=== PATIENT | female | born 1990 | race Caucasian/White ===

== ENCOUNTER 2020-07-26 06:21 | Emergency (ER) | payer OTHER ==
--- NOTE | 2020-07-26 06:37 | ED Physician Documentation ---
PD HPI NECK PAIN - Stated complaint Stated Complaint: NECK/SHOULDER PX - Chief complaint Chief Complaint: General PD PAST MEDICAL HISTORY - Past Medical History Cardiovascular: Other Respiratory: None Neuro: None Endocrine/Autoimmune: Other GI: None UNIVERSITY INTERN: None : None HEENT: None Psych: Anxiety Musculoskeletal: None Derm: None - Past Surgical History Past Surgical History: Yes /UNIVERSITY INTERN: section - Allergies Allergies/Adverse Reactions: Allergies Allergy/AdvReac Type Severity Reaction Status Date / Time Penicillins Allergy Unknown Verified 07/26/20 06:35 - Social History Does the pt smoke?: No Smoking Status: Never smoker Does the pt drink ETOH?: No Does the pt have substance abuse?: No - Immunizations Immunizations are current?: Yes Results - Vitals Vitals: Vital Signs - 24 hr 07/26/20 07/26/20 06:24 06:28 Temperature 36.5 C Heart Rate 80 Respiratory 18 Rate Blood Pressure 103/71 O2 Saturation 99 Oxygen O2 Source Room air
[2020-07-26] MEDS ORDERED: KETOROLAC 60 MG/2 ML VIAL IM STA (07:09)
[2020-07-26] MEDS ORDERED: ACETAMINOPHEN 325 MG TABLET PO STA (07:35)
--- NOTE | 2020-07-26 08:12 | ED Physician Documentation ---
PD HPI NECK PAIN - Stated complaint Stated Complaint: NECK/SHOULDER PX - Chief complaint Chief Complaint: General - History obtained from History obtained from: Patient - History of Present Illness Timing - onset: Yesterday Timing - details: Abrupt onset, Still present (she was lifting heavy bag of feed into truck yesterday and used her knee to help push it up. Onset of lower neck pain at the time, presume strained. Was hurting some into bedtime but slept the night. Abrupt pain this morning when got up. Hurts with ROM and feeling of swelling at lower cervical area.) Location: Lower, Other (midline) Quality: Pain, Spasm Associated symptoms: Numbness (mild tingling right radial forearm at times. But has had that feeling with some neck pain intermittently in the past. Has not had neck hurt this much in the past though.). No: Fever, Weakness Improves with: Rest Worsened by: Movement Contributing factors: Lifting, Twisting. No: Trauma Similar symptoms before: No diagnosis (some neck pains at times since 15 years old. Not needed more than Tylenol at times.) Recently seen: Not recently seen Review of Systems Constitutional: denies: Fever Nose: denies: Rhinorrhea / runny nose, Congestion Throat: denies: Sore throat Respiratory: denies: Cough Skin: denies: Rash Musculoskeletal: reports: Neck pain. 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 - Present Medications Home Medications: Ambulatory Orders Medication Instructions Recorded Confirmed Hydrocodone/Acetaminophen 1 each PO Q6H PRN #12 tablet 07/26/20 [Hydrocodone-Acetamin 5-325 mg] Naproxen 375 mg PO TID #20 tablet 07/26/20 Tizanidine HCl 4 mg PO TID PRN #20 capsule 07/26/20 - Allergies Allergies/Adverse Reactions: Allergies Allergy/AdvReac Type Severity Reaction Status Date / Time Penicillins Allergy Unknown Verified 07/26/20 06:35 - Social History Does the pt smoke?: No Smoking Status: Never smoker Does the pt drink ETOH?: No Does the pt have substance abuse?: No - Immunizations Immunizations are current?: Yes PD ED PE NORMAL - Vitals Vital signs reviewed: Yes - General General: Alert and oriented X 3, Well developed/nourished, Other (guarded ROM of the neck) - Neck Neck: Supple, no meningeal sign, No adenopathy, Other (tender at lower neck spinous processes, with mild swelling at prominens area. No redness nor skin lesions. ) - Cardiac Cardiac: RRR, No murmur - Respiratory Respiratory: Clear bilaterally - Derm Derm: Normal color, Warm and dry, No rash - Neuro Neuro: Alert and oriented X 3, No motor deficit, No sensory deficit, Normal speech Results - Vitals Vitals: Vital Signs - 24 hr 07/26/20 07/26/20 07/26/20 06:24 06:28 08:34 Temperature 36.5 C 36.2 C L Heart Rate 80 64 Respiratory 18 18 Rate Blood Pressure 103/71 107/67 O2 Saturation 99 100 Oxygen O2 Source Room air - Rads (name of study) cervical CT Radiology: Prelim report reviewed (no fractures nor acute osseous process), See rad report PD MEDICAL DECISION MAKING - ED course Complexity details: reviewed results (no bony process), re-evaluated patient (improved reasonably with Toradol. Can add muscle relaxant, heat/ice, pain meds PRN. ), considered differential (given the mechanism and pain location, can get imaging to eval for avulsion/fracture (such as isamar shovelers) or underlying bony process, given longer term neck pains. ), d/w patient Departure - Departure Disposition: 01 Home, Self Care Clinical Impression: Acute cervical myofascial strain Qualifiers: Encounter type: initial encounter Qualified Code(s): S16.1XXA - Strain of muscle, fascia and tendon at neck level, initial encounter Condition: Stable Record reviewed to determine appropriate education?: Yes Instructions: ED Sprain Strain Neck Follow-Up: ROMAN POLANCO ARNP [Primary Care Provider] - Prescriptions: Hydrocodone/Acetaminophen [Hydrocodone-Acetamin 5-325 mg] 1 each PO Q6H PRN #12 tablet PRN Reason: Pain Naproxen 375 mg PO TID #20 tablet Tizanidine HCl 4 mg PO TID PRN #20 capsule PRN Reason: Spasms Comments: No obvious bony abnormality seen on the scan. General alignment appears normal. You can use heat or ice and see which feels better for either stiffness or spasms for the heat or swelling for the cold. Use some anti-inflammatories regularly for the next several days to week. Naproxen twice daily. Take it with food so it does not bother your stomach. Add tizanidine muscle relaxant for stiffness and spasms as needed. To that you can also add Tylenol every 4-6 hours. Hydrocodone can be used for worse pain in the short-term. Follow-up with your primary care if not improved well over the next several days and for general ongoing care and evaluation of the neck. Discharge Date/Time: 07/26/20 08:37
--- NOTE | 2020-07-26 08:18 | CT Report ---
PROCEDURE: CERVICAL SPINE WO INDICATIONS: abrupt neck pain with lifting type mechanism TECHNIQUE: Noncontrast 3 mm thick sections acquired from the skull base to the T4 level. Sagittal and coronal r eformats were then constructed. For radiation dose reduction, the following was used: automated exp osure control, adjustment of mA and/or kV according to patient size. COMPARISON: None. FINDINGS: Image quality: Excellent. Bones: No fractures or dislocations. Visualized superior ribs are intact. There is straightening of the normal cervical lordosis. No significant AP alignment abnormality can be seen. Moderate mucosal thickening is seen within the maxillary sinuses, left worse than right. Soft tissues: Prevertebral soft tissues are normal in thickness. No paravertebral hematomas. No ap ical pneumothoraces. IMPRESSION: No imaging explanation found for the patient's presenting symptoms. Straightening of the normal cervical lordosis is seen, which is commonly observed in patients with mu scular spasm. Reviewed by: Kingsley Jones MD on 07/26/2020 7:17 AM DAYANARA Approved by: Kingsley Jones MD on 07/26/2020 7:17 AM DAYANARA Station ID: [id number]
[2020-07-26 08:34] VITALS: BP 107/67
== END 2020-07-26 08:37 | disposition home or self-care (01) ==
LOC: ED 06:21
DX: S16.1XXA Strain of muscle, fascia and tendon at neck level, initial encounter (principal); X50.0XXA Overexertion from strenuous movement or load, initial encounter
CPT/HCPCS: 72125; 99281; 99284; A9270

== ENCOUNTER 2020-12-06 13:38 | Emergency (ER) | payer OTHER ==
[2020-12-06 14:05] VITALS: BP 112/64
[2020-12-06] MEDS ORDERED: BACITRACIN ZINC OINT 1 PACKET TOP STA (14:10)
--- NOTE | 2020-12-06 14:17 | ED Physician Documentation ---
History of Present Illness - Stated complaint Stated Complaint: LFT FOOT INJURY - Chief complaint Chief Complaint: Wound - History obtained from History obtained from: Patient - History of Present Illness Timing: Today Pain level max: 0 Pain level now: 0 - Additonal information Additional information: Patient is a 30-year-old female who presents to the emergency department after stepping on a nail while working in her barn with her left foot. She states that she washed the area well, but is unsure of her last tetanus shot, so came in for evaluation. No bleeding. 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 - Present Medications Home Medications: Ambulatory Orders Medication Instructions Recorded Confirmed No Known Home Medications 12/06/20 12/06/20 - Allergies Allergies/Adverse Reactions: Allergies Allergy/AdvReac Type Severity Reaction Status Date / Time Penicillins Allergy Unknown Verified 12/06/20 14:05 - Social History Does the pt smoke?: No Smoking Status: Never smoker Does the pt drink ETOH?: No Does the pt have substance abuse?: No - Immunizations Immunizations are current?: Yes PD ED PE NORMAL - Vitals Vital signs reviewed: Yes - General General: Alert and oriented X 3, No acute distress - Derm Derm: Warm and dry - Extremities Extremities: Other (Left foot - Small puncture wound to the base of the second toe. No swelling. No bleeding.) - Neuro Neuro: Alert and oriented X 3 - Psych Psych: Normal mood, Normal affect Results - Vitals Vitals: Vital Signs - 24 hr 12/06/20 14:03 Temperature 36.6 C Heart Rate 70 Respiratory 14 Rate Blood Pressure 112/64 O2 Saturation 100 Oxygen O2 Source Room air PD MEDICAL DECISION MAKING - ED course Complexity details: considered differential, d/w patient ED course: Patient with a small plantar puncture wound. We will continue supportive wound care and have her follow-up with her doctor. She did receive a Tdap vaccination last year with her baby. No indication for repeat tetanus today. Patient counseled regarding signs and symptoms for which I believe and urgent re- evaluation would be necessary. Patient with good understanding of and agreement to plan and is comfortable going home at this time This document was made in part using voice recognition software. While efforts are made to proofread this document, sound alike and grammatical errors may occur. Departure - Departure Disposition: 01 Home, Self Care Clinical Impression: Puncture wound of plantar aspect of left foot Qualifiers: Encounter type: initial encounter Qualified Code(s): S91.332A - Puncture wound without foreign body, left foot, initial encounter Condition: Good Instructions: ED Wound Puncture Foot Follow-Up: ROMAN POLANCO ARNP [Primary Care Provider] - Within 1 week Comments: Follow up with your doctor in 1 week for wound check. Keep the wound clean and dry. Return if you worsen.
== END 2020-12-06 14:26 | disposition home or self-care (01) ==
LOC: ED 13:38
DX: S91.332A Puncture wound without foreign body, left foot, initial encounter (principal); W45.0XXA Nail entering through skin, initial encounter; Y92.71 Barn as the place of occurrence of the external cause; Z23 Encounter for immunization
CPT/HCPCS: 99282; A9270

== ENCOUNTER 2021-06-15 15:49 | Outpatient (CLI) | payer OTHER ==
--- NOTE | 2021-06-15 16:58 | SLEEP CARE CONSULTATION ---
Information from patient questionnaire entered by Marie Nagel. I have reviewed and concur with the information entered by Marie Nagel. This document represents the service I personally performed and the decisions made by me, Jeniffer Skaggs ARNP. History of Present Illness Service Date and Time: 06/15/2021 154 Reason for Visit: New patient Chief Complaint: reports: Unrefreshed sleep, Excessive daytime sleepiness, Frequent awakenings at night Date of Onset: Years Usual bedtime: 9 PM Time it takes to fall asleep: Half hour Snores at night: No Observed to quit breathing while asleep: No Sleeps alone due to snoring: No Number of times waking at night: 4-5 times Reasons for waking at night: reports: Other (Unknown reason/not sure) Toss, Turn, or Twitch while sleeping: Yes Recalls having dreams: No Usually gets out of bed at: 6 AM Feels refreshed in the morning: No Morning headache: Yes (2-3 times a week; last few hours to all day unless she takes analgesic) Sleepy or fatigued during the day: Yes Ever fallen asleep while driving: No Takes day naps: No Dreams during day naps: No Prior sleep studies: No Additional HPI information: I had the pleasure of seeing NINFA CARLOS today regarding the possibility of her having a sleep disorder. Her current complaints are unrefreshed sleep, frequent night awakenings and insomnia. She has headaches regularly and saw her PCP. She was describing about how she does not get good sleep and awakens often at night. Her PCP referred her for evaluation. She has two young children, 18 months and 4 years old. She states that both are sleeping through the night. She does not sleep solidly through the night and will wake up for no apparent reason. She states it takes her 30 minutes to get to sleep at the onset of the night. Later during the night, when she awakens at night it can be difficult to go back to sleep. She has never been told that she snores. Her has not told her that she has any pauses in breathing with sleeping. Both of her parents snore. She has ear pain with her headaches and is going to see an ENT specialist too. 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 Patient is and lives in [place]. Have you smoked in the past 12 months: No Alcohol use: No Caffeine use: No Family History Family history of sleep disordered breathing: Yes Family Hx Sleep Apnea: Mother: Snoring, Father: Snoring Allergies and Home Medications Drug allergies reviewed: Yes (penicillin) Home medication list reviewed: Yes (no daily medications or supplements) Review of Systems Cardiovascular: denies: high blood pressure Gastrointestinal: reports: nausea, diarrhea Neurological: reports: headaches Psychiatric: reports: anxiety, depression Ear/Nose/Throat: reports: injury to nose (15 yo kicked in face by horse had septum surgery on right side), tonsillectomy Endocrine: reports: sluggishness (tired) Musculoskeletal: reports: neck pain Physical Exam Blood Pressure: 96/62 Cuff size: wrist Heart Rate: 77 O2 Saturation: 98 Height: 5 ft 7 in Weight: 136 lb Body Mass Index: 21.2 BMI Classification: Healthy weight Neck circumference: 12.5 (inches) Nostrils: patent to airflow Mouth and throat: narrow oropharynx Soft palate: long Hard palate: normal Uvula: normal Uvula visualization: 50% Mallampati Class II Tongue: enlarged in size with teeth timmons on lateral edges Tonsils: absent bilaterally Neck: normal w/o lymphadenopathy or thyromegaly Heart: regular rate and rhythm Lungs: clear bilaterally Impression and Plan 1. Suspected Obstructive Sleep Apnea-Hypopnea Syndrome, as suggested by a history of morning headache, frequent awakening during the night, unrefreshed sleep, cognitive impairment, and excessive daytime sleepiness. Narrow oropharynx and obesity are common predisposing factors for obstructive sleep apnea-hypopnea syndrome. I recommend proceeding to polysomnography to confirm the diagnosis and to assess severity. If the patient has significant sleep disordered breathing, a manual CPAP titration study will also be performed to find the optimal treatment pressure. I informed the patient of what the sleep studies involve and after some discussion, obtained agreement to proceed. The pathophysiology of obstructive sleep apnea-hypopnea syndrome was discussed with the patient and health risks of cardiovascular and cerebrovascular disease if not treated. Risks of drowsy driving discussed in detail and patient advised to avoid long distance driving and to bone char puller at the first sign of drowsiness. Patient agreed to plan. * Schedule polysomnography +- manual CPAP titration study and return in 1-2 weeks after the study to discuss result and initiate therapy. * Avoid long distance driving or driving when feeling sleepy. * Avoid alcohol, sedative and muscle relaxant around bedtime. * Attempt to lose weight. * Review instructions provided by trained office staff on how to prepare for the sleep study. * Return for follow-up after sleep study completed. Counseling Topics: Weight control Visit Type: In Office Time Spent with Patient (minutes): 30 Provider Statement: I spent 100% of the Face to Face Visit with the patient with greater than 50% spent counseling the patient and coordination of care.
[2021-06-15 16:59] VITALS: BP 96/62
== END 2021-06-15 15:50 | disposition home or self-care (01) ==
LOC: SC 15:49
PROVIDERS: ATTEND Nurse Practitioner Family
DX: R51.9 Headache, unspecified (principal); G47.8 Other sleep disorders; R41.89 Other symptoms and signs involving cognitive functions and awareness; G47.10 Hypersomnia, unspecified
CPT/HCPCS: 99203; 99212

== ENCOUNTER 2021-07-01 07:42 | Outpatient (CLI) | payer OTHER | END 2021-07-01 07:43 | disposition home or self-care (01) | LOC: SC 07:42 | PROVIDERS: ATTEND Nurse Practitioner Family | DX: F32.9 Major depressive disorder, single episode, unspecified (principal); G47.8 Other sleep disorders; R51.9 Headache, unspecified; G47.10 Hypersomnia, unspecified | CPT/HCPCS: 95806 ==

== ENCOUNTER 2021-07-14 16:31 | Outpatient (CLI) | payer OTHER ==
--- NOTE | 2021-07-14 16:39 | SLEEP CARE CONSULTATION ---
Information from patient questionnaire entered by Marie Nagel. I have reviewed and concur with the information entered by Marie Nagel. This document represents the service I personally performed and the decisions made by , Jeniffer Skaggs ARNP. History of Present Illness Service Date and Time: 07/14/2021 1620 Initial Herbster Sleepiness Scale score: 11 (in 2020) Current Herbster Sleepiness Scale score: 4 Additional HPI information: NINFA CARLOS returns via video Telehealth visit for follow up and results of the recently performed home sleep study. The patient was informed of the following findings: No significant sleep dis ordered breathing with an average AHI of 0.7 and verenice oxygen saturation of 93%. I explained the pathophysiology behind obstructive sleep apnea. Patient does not have sleep apnea and was advised how weight gain could increase the risk of developing sleep apnea in the future. Patient does not drink alcohol. Patient was cautioned about risks of drowsy driving until sleepiness symptoms resolve. Patient denies drowsy driving. Sleep Study - Results Type of Sleep Study: Home sleep study Prior sleep studies: No Polysomnography/Home Sleep Study results: Physician Impression: The quality of the study is good. The length of the study is adequate (> 240 minutes). Please also see the tabulated and graphic data. 1. No evidence of sleep disordered breathing, with an AHI of 0.7/hr and verenice S aO2 of 93%. During the study, the patient had 6 apneas (6 obstructive, 0 central, 0 mixed) and 0 hypopneas. The longest episode lasted 20.5 seconds. The patient slept adequately in supine position (supine AHI was 2.0 and non-supine, 0.16). Allergies and Home Medications Home medication list reviewed: Yes (no changes) Review of Systems Review of systems same as previous: Yes (no changes) Physical Exam Vital signs obtained and entered by: Telehealth visit to reduce exposure during Covid pandemic Height: 5 ft 7 in Impression and Plan Insomnia, unspecified. Patient appears to have sleep maintenance issues but her sleep study was negative for sleep disordered breathing. Insomnia is generally caused by an irregular sleep schedule, spending too much time in bed, napping, caffiene, electronics, lack of a relaxing bedtime ritual and clock watching. Other factors can include anxiety/depression, pain, medications, and obstructive sleep apnea. First I counseled the patient on the importance of a regular sleep schedule, starting with the wake time. I also encouraged her to look at her sleep hygiene to see what she can to do to improve her ability to sleep better. She voiced understanding and agreement with plan. Patient may return if she does not have improvement or her symptoms become worse. * Attempt to lose weight * The patient is cautioned about driving until sleepiness is completely resolved. * Return as needed. Counseling Topics: Weight loss health impact Visit Type: Telehealth Video Video Type: VSee Patient Location: Car Location of Provider: Office Patient agrees and consents to this telehealth visit type: Yes Patient agrees to have their insurance billed: Yes Time Spent with Patient (minutes): 11 Provider Statement: I spent 100% of the Telehealth Video Call with the patient with greater than 50% spent counseling the patient and coordination of care.
== END 2021-07-14 16:32 | disposition home or self-care (01) ==
LOC: SC 16:31
PROVIDERS: ATTEND Nurse Practitioner Family
DX: G47.00 Insomnia, unspecified (principal)

== ENCOUNTER 2022-04-17 18:12 | Emergency (ER) | payer OTHER ==
[2022-04-17 18:26] VITALS: BP 107/63
--- NOTE | 2022-04-17 18:58 | ED Physician Documentation ---
History of Present Illness - Stated complaint Stated Complaint: PX/SWELLING LT KNEE - Chief complaint Chief Complaint: Ext Problem - Additonal information Additional information: 32-year-old female presents emergency department for evaluation of swelling behind her left knee. Symptoms began 2 days ago. She denies any calf pain or tenderness. No leg swelling otherwise. She reports that she rides horses on average of 4-6 times a week but denies any known injury or events. She recently traveled to [place] via airplane but the flight was only 90 minutes. She does have the Mirena IUD in place. No personal history of DVT clots or cancer though her mom does get DVTs and is on lifelong anticoagulation. Patient is denying any chest pain or shortness of air. 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 - Present Medications Home Medications: Ambulatory Orders Medication Instructions Recorded Confirmed No Known Home Medications 12/06/20 04/17/22 - Allergies Allergies/Adverse Reactions: Allergies Allergy/AdvReac Type Severity Reaction Status Date / Time Penicillins Allergy Unknown Verified 04/17/22 18:26 - Social History Does the pt smoke?: No Smoking Status: Never smoker Does the pt drink ETOH?: No Does the pt have substance abuse?: No - Immunizations Immunizations are current?: Yes - POLST Patient has POLST: No PD ED PE EXPANDED - General General: Alert, No acute distress - Extremities Extremities: Left knee (palpable swelling left posterior knee. normal ROM. Normal gait. no calf swelling, tenderness. 2+ DP pulse) Results - Vitals Vitals: Vital Signs - 24 hr 04/17/22 18:22 Temperature 36.7 C Heart Rate 66 Respiratory 16 Rate Blood Pressure 107/63 O2 Saturation 99 Oxygen O2 Source Room air - Rads (name of study) US left leg Radiology: Final report received (No deep vein thrombosis identified) PD MEDICAL DECISION MAKING - ED course Complexity details: reviewed results, re-evaluated patient, considered differe ntial, d/w patient ED course: Well-appearing 32-year-old female presents emergency department for evaluation of 2 days left posterior knee swelling. No pain. No fevers or erythema. No falls or trauma. She does have a Mirena IUD in place. She is concerned she could have a DVT. Ultrasound was negative. I do appreciate mild swelling in the posterior knee initially suspected this would likely show a Li's cyst but again the Ultrasound was negative. She has a normal gait and no leg swelling. Clinically this is not suspicious for an infectious process. The knee was gently Alli wrap. Advised Motrin or Tylenol if she should develop any discomfort. Emergent return precautions were discussed for worsening symptoms Departure - Departure Disposition: 01 Home, Self Care Clinical Impression: Knee swelling Condition: Stable Record reviewed to determine appropriate education?: Yes Comments: You are seen today in the emergency department because you have had some mild swelling behind your left knee for about 2 days. Ice expected that the ultrasound would show a Li's cyst. This was not seen on ultrasound. In addition to that there were no findings of a DVT. Your knee is not hot or red. There is no fevers and I have low suspicion that this is an infectious process. We have Alli wrap to your knee. I encourage you to wear this when out of bed for the next few days. If you find that despite this you are having worsening symptoms, you develop any significant pain, high fevers or generalized swelling of the leg we should repeat the exam. Discussed this ED visit with your primary care provider.
--- NOTE | 2022-04-17 19:59 | Ultrasound Report ---
PROCEDURE: Duplex Ext Veins Left INDICATIONS: leg pain TECHNIQUE: Real-time imaging, as well as color and pulse Doppler interrogation, were performed of the lower extr emity deep veins from the inguinal ligament to the popliteal fossa. COMPARISON: None. FINDINGS: The deep veins are normally compressible, and free of intraluminal thrombus. Color and pu lse Doppler demonstrate normal phasic intraluminal flow. There is normal augmentation response to di stal compression maneuver. IMPRESSION: No evidence of deep vein thrombosis involving the left lower extremity. Reviewed by: Salina Martinez MD, PhD on 04/17/2022 7:57 PM PDT Approved by: Salina Martinez MD, PhD on 04/17/2022 7:57 PM PDT Station ID: [id number]
== END 2022-04-17 20:13 | disposition home or self-care (01) ==
LOC: ED 18:12
DX: R22.42 Localized swelling, mass and lump, left lower limb (principal); Z97.5 Presence of (intrauterine) contraceptive device
CPT/HCPCS: 99282; 99284

== ENCOUNTER 2022-04-22 13:58 | Emergency (ER) | payer OTHER ==
[2022-04-22] MEDS ORDERED: ACETAMINOPHEN 500 MG TABLET PO STA (14:37)
[2022-04-22] MEDS ORDERED: IBUPROFEN 600 MG TABLET PO STA (14:37)
--- NOTE | 2022-04-22 14:40 | ED Physician Documentation ---
PD HPI MAJOR TRAUMA - Stated complaint Stated Complaint: RIGH HIP NUMB - Chief complaint Chief Complaint: Trauma Ch/Bk - History obtained from History obtained from: Patient - Additional information Additional information: Healthy 32-year-old woman with history of anxiety, currently on no medications. She was riding a 14 hand horse and bucked off onto the right side. The worst of the pain is in the right side of the pelvis radiating to the leg with some numbness in the leg. She also has some right shoulder pain and right leg pain. Denies head or neck injury. No alcohol or drug use today. No possibility of , IUD in place. Review of Systems Ten Systems: 10 systems reviewed and negative Constitutional: denies: Fever, Chills Nose: denies: Rhinorrhea / runny nose, Congestion, Epistaxis Cardiac: denies: Pedal edema, Calf pain Respiratory: denies: Dyspnea, Cough, Hemoptysis, Wheezing PD PAST MEDICAL HISTORY - Past Medical History Cardiovascular: Other Respiratory: None Neuro: None Endocrine/Autoimmune: Other GI: None ASSOCIATE RELATIONS SPECIALIST: None : None HEENT: None Psych: Anxiety Musculoskeletal: None Derm: None - Past Surgical History Past Surgical History: Yes /ASSOCIATE RELATIONS SPECIALIST: section - Present Medications Home Medications: Ambulatory Orders Medication Instructions Recorded Confirmed No Known Home Medications 12/06/20 04/17/22 - Allergies Allergies/Adverse Reactions: Allergies Allergy/AdvReac Type Severity Reaction Status Date / Time Penicillins Allergy Unknown Verified 04/22/22 14:32 - Social History Does the pt smoke?: No Smoking Status: Never smoker Does the pt drink ETOH?: No Does the pt have substance abuse?: No - Immunizations Immunizations are current?: Yes - POLST Patient has POLST: No PD ED PE NORMAL - Vitals Vital signs reviewed: Yes - General General: Alert and oriented X 3, No acute distress - HEENT HEENT: PERRL, EOMI - Neck Neck: Supple, no meningeal sign, No bony TTP - Cardiac Cardiac: RRR, No murmur - Respiratory Respiratory: No respiratory distress, Clear bilaterally - Abdomen Abdomen: Normal bowel sounds, Soft, Non tender - Back Back: No CVA TTP, No spinal TTP - Derm Derm: Normal color, Warm and dry - Extremities Extremities: Other (Mild tenderness of the right shoulder with obtained range of motion. Mild tenderness diffusely of the right ribs. More significant tenderness of the right hip and cannot rotate the right leg. Mild tenderness of the right knee and tib-fib not of the ankle and foot.) - Neuro Neuro: Alert and oriented X 3, Normal speech, Other (Diminished sensation in the right thigh and right lateral leg compared to the left leg, intact reflexes and strength. Medial right leg has normal sensation.) Eye Opening: Spontaneous Motor: Obeys Commands Verbal: Oriented GCS Score: 15 Results - Vitals Vitals: Vital Signs - 24 hr 04/22/22 04/22/22 04/22/22 14:27 15:01 15:31 Temperature 36.5 C Heart Rate 95 92 79 Respiratory 18 18 16 Rate Blood Pressure 96/72 105/60 105/57 L O2 Saturation 100 100 100 04/22/22 04/22/22 16:30 17:00 Temperature Heart Rate 76 75 Respiratory 18 18 Rate Blood Pressure 101/64 105/60 O2 Saturation 100 100 Oxygen O2 Source Room air - Labs Labs: Laboratory Tests 04/22/22 04/22/22 04/22/22 14:45 14:45 15:05 WBC 17.1 H RBC 4.91 Hgb 14.4 Hct 41.7 MCV 84.9 MCH 29.3 MCHC 34.5 RDW 12.4 Plt Count 262 MPV 10.2 Neut # (Auto) 14.4 H Lymph # (Auto) 1.7 [place] # (Auto) 0.8 Eos # (Auto) 0.0 Baso # (Auto) 0.0 Absolute Nucleated RBC 0.00 Nucleated RBC % 0.0 PT 12.9 H INR 1.2 Sodium 139 Potassium 2.9 L Chloride 105 Carbon Dioxide 21 Anion Gap 13.0 BUN 21 H Creatinine 0.9 Estimated GFR (MDRD) 73 L Glucose 107 H Calcium 9.9 - Rads (name of study) X-rays of the right shoulder, right knee, right tib-fib are negative. Radiology: EMP read contemporaneously PD MEDICAL DECISION MAKING - ED course ED course: 32-year-old woman presents after a fall from the horse. She was thoroughly imaged and the only traumatic finding was superior and inferior pelvic ramus fractures. She was able to walk here with the aid of a walker and declined prescription pain medications. She understands the need for follow-up and the expected course of healing. Departure - Departure Disposition: 01 Home, Self Care Clinical Impression: Cholelithiasis Qualifiers: Cholelithiasis location: gallbladder Cholecystitis presence: without cholecystitis Biliary obstruction: without biliary obstruction Qualified Code(s): K80.20 - Calculus of gallbladder without cholecystitis without obstruction Pelvic fracture Qualifiers: Encounter type: initial encounter Pelvic bone location: multiple parts Fracture type: closed Fracture alignment: without disruption of pelvic ring Qualified Code(s): S32.82XA - Multiple fractures of pelvis without disruption of pelvic ring, initial encounter for closed fracture Chest wall contusion Qualifiers: Encounter type: initial encounter Laterality: right Qualified Code(s): S20.211A - Contusion of right front wall of thorax, initial encounter Contusion of right shoulder Qualifiers: Encounter type: initial encounter Qualified Code(s): S40.011A - Contusion of right shoulder, initial encounter Contusion of right knee Qualifiers: Encounter type: initial encounter Qualified Code(s): S80.01XA - Contusion of right knee, initial encounter Contusion of right leg Qualifiers: Encounter type: initial encounter Qualified Code(s): S80.11XA - Contusion of right lower leg, initial encounter Fall from horse Qualifiers: Encounter type: initial encounter Qualified Code(s): V80.010A - Animal-rider injured by fall from or being thrown from horse in noncollision accident, initial encounter Condition: Good Record reviewed to determine appropriate education?: Yes Instructions: ED Fx Pelvis Comments: You were seen today for a pelvic fracture involving the superior and inferior pelvic ramus. As discussed, generally fractures like this do not need any sp ecific treatment. Use the walker as long as you need. For pain management you can take 2 extra strength Tylenol every 6 hours, and 3 ibuprofen every 6 hours. As discussed we did find incidental gallstones and kidney stones. You should follow-up with an orthopedist before you leave town for reevaluation and potential repeat x-rays. The civilian office locally is listed on this form and you can call Monday for an appointment. Return for new or worsening symptoms. Discharge Date/Time: 04/22/22 17:47
[2022-04-22 14:58] LABS: BASOPHILS % (AUTO) 0.2 %; EOSINOPHILS % (AUTO) 0.2 %; HCT - HEMATOCRIT 41.7 % (37.0-47.0); HGB - HEMOGLOBIN 14.4 g/dL (12.0-16.0); LYMPHOCYTES # (AUTO) 1.7 10^3/uL (1.5-3.5); LYMPHOCYTES % (AUTO) 9.7 %; MEAN CORPUSCULAR HEMOGLOBIN 29.3 pg (27.0-31.0); MEAN CORPUSCULAR HGB CONC 34.5 g/dL (32.0-36.0); MEAN CORPUSCULAR VOLUME 84.9 fL (81.0-99.0); MEAN PLATELET VOLUME 10.2 fL (7.9-10.8); MONOCYTES # (AUTO) 0.8 10^3/uL (0.0-1.0); MONOCYTES % (AUTO) 4.8 %; NEUTROPHILS # (AUTO) 14.4 10^3/uL (1.5-6.6); NEUTROPHILS % (AUTO) 84.5 %; PLT - PLATELET COUNT 262 10^3/uL (130-450); RED BLOOD COUNT 4.91 10^6/uL (4.20-5.40); RED CELL DISTRIBUTION WIDTH 12.4 % (12.0-15.0); WHITE BLOOD COUNT 17.1 x10^3/uL (4.8-10.8)
[2022-04-22 15:07] LABS: CALCIUM 9.9 mg/dL (8.5-10.3); CREATININE 0.9 mg/dL (0.4-1.0); POTASSIUM 2.9 mmol/L (3.5-5.0)
--- NOTE | 2022-04-22 15:27 | XRAY Report ---
PROCEDURE: Knee 4 View RT INDICATIONS: knee inj TECHNIQUE: 3 views of the right knee were acquired. COMPARISON: None. FINDINGS: Bones: No acute fractures or dislocations. No suspicious bony lesions. Soft tissues: No suspicious soft tissue calcifications. IMPRESSION: No acute osseous abnormality. If there is clinical concern or persistent symptoms, addit ional imaging such as repeat radiographs or advanced imaging (e.g. CT, MRI) may be helpful for furthe r evaluation. Reviewed by: Aniket Love MD on 04/22/2022 3:25 PM PDT Approved by: Aniket Love MD on 04/22/2022 3:25 PM PDT Station ID: [id number]
--- NOTE | 2022-04-22 15:27 | XRAY Report ---
PROCEDURE: Tib/Fib RT INDICATIONS: leg inj TECHNIQUE: 2 views of the tibia and fibula were acquired. COMPARISON: None. FINDINGS: Bones: No acute fractures or dislocations. No suspicious bony lesions. Soft tissues: No suspicious soft tissue calcifications or masses. IMPRESSION: No acute osseous abnormality. If there is clinical concern or persistent symptoms, additional imaging such as repeat radiographs or advanced imaging (e.g. CT, MRI) may be helpful for further evaluation. Reviewed by: Aniket Love MD on 04/22/2022 3:26 PM PDT Approved by: Aniket Love MD on 04/22/2022 3:26 PM PDT Station ID: [id number]
--- NOTE | 2022-04-22 15:29 | XRAY Report ---
PROCEDURE: Shoulder 3 View RT INDICATIONS: shoulder inj TECHNIQUE: 3 views of the shoulder were acquired. COMPARISON: None. FINDINGS: Bones: No acute fractures or dislocations. No suspicious bony lesions. Visualized ribs appear inta ct. Soft tissues: No suspicious soft tissue calcifications. IMPRESSION: No acute osseous abnormality. If there is clinical concern or persistent symptoms, additi onal imaging such as repeat radiographs or advanced imaging (e.g. CT, MRI) may be helpful for further evaluation. Reviewed by: Aniket Love MD on 04/22/2022 3:28 PM PDT Approved by: Aniket Love MD on 04/22/2022 3:28 PM PDT Station ID: [id number]
[2022-04-22 16:09] LABS: INR 1.2 (0.8-1.2); PT - PROTHROMBIN TIME 12.9 secs (9.9-12.6)
--- NOTE | 2022-04-22 16:30 | CT Report ---
PROCEDURE: Abdomen/Pelvis WO INDICATIONS: fall from horse, pelvic pain TECHNIQUE: Noncontrast 5 mm thick sections acquired from the diaphragms to the symphysis. 5 mm coronal and sagi ttal reformats were then performed. For radiation dose reduction, the following was used: automated exposure control, adjustment of mA and/or kV according to patient size. COMPARISON: None. FINDINGS: Image quality: Excellent. ABDOMEN: Lung bases: Lung bases are clear. Heart size is normal. Solid organs: Liver and spleen are normal in size. Gallbladder contains a single calcified gallston e. Pancreas is normal in contours. No adrenal nodules. Kidneys are normal in size, without hydrone phrosis. A 2 mm nonobstructing calculus is seen at the interpolar region of the right kidney. Peritoneum and bowel: Unenhanced bowel loops demonstrate normal wall thickness and caliber. No free fluid or air. Nodes and vessels: No retroperitoneal or mesenteric adenopathy by size criteria. Aorta and inferior vena cava are normal in caliber. Miscellaneous: No ventral hernias. PELVIS: Genitourinary: Bladder wall thickness is normal. An intrauterine device is seen in expected positio n. Miscellaneous: No inguinal hernias or adenopathy. Bones: Minimally displaced fractures are seen in the right inferior and superior pubic rami with mild adjacent soft tissue edema. The pelvic bones are otherwise intact. No suspicious bony lesions. No v ertebral body compression fractures. Subcutaneous soft tissue edema is seen in the right gluteal reg ion. IMPRESSION: 1.Minimally displaced fractures of the right inferior and superior pubic rami. 2.No acute solid organ injury. 3.Cholelithiasis. 4.Nonobstructing 2 mm calculus at the interpolar region of the right kidney. Reviewed by: Aniket Love MD on 04/22/2022 4:29 PM PDT Approved by: Aniket Love MD on 04/22/2022 4:29 PM PDT Station ID: [id number]
--- NOTE | 2022-04-22 16:31 | CT Report ---
PROCEDURE: LUMBAR SPINE WO INDICATIONS: back pain, fall from horse TECHNIQUE: Noncontrast 3 mm thick sections acquired from the T12 level to the sacrum. Sagittal and coronal refo rmats were constructed. For radiation dose reduction, the following was used: automated exposure co ntrol, adjustment of mA and/or kV according to patient size. COMPARISON: None. FINDINGS: Image quality: Excellent. Bones: There is normal bony alignment. No acute fracture. No suspicious lytic or blastic bony lesi on. Central spinal caliber is normal in caliber. No pars defect. Soft tissues: No retroperitoneal mass or hematoma. IMPRESSION: No acute finding. Reviewed by: Anastacio Kemp MD on 04/22/2022 4:30 PM PDT Approved by: Anastacio Kemp MD on 04/22/2022 4:30 PM PDT Station ID: [id number]
--- NOTE | 2022-04-22 16:31 | CT Report ---
PROCEDURE: CHEST WO INDICATIONS: fall from horse, rib pain TECHNIQUE: Noncontrast 1mm axial images were acquired from the pulmonary apices to the posterior costophrenic an gles. Axial 5 mm soft tissue kernel reconstructions were performed as well as 8 mm axial MIP and cor onal and sagittal 5 mm reformations. For radiation dose reduction, the following was used: automate d exposure control, adjustment of mA and/or kV according to patient size. COMPARISON: None. FINDINGS: Image quality: Excellent. Lungs and pleura: No acute air space opacities. No pleural effusions or pneumothorax. Central and peripheral airways are patent and normal in caliber. Mediastinum: Heart size is normal. No pericardial effusion. No mediastinal adenopathy by size crit eria. Thoracic aorta and central pulmonary arteries are normal in size. Esophagus is normal in demetrius juwan. No hiatal hernia. Bones and chest wall: No suspicious bony lesions. No vertebral body compression fractures. No axil stephen or supraclavicular adenopathy by size criteria. The thyroid is normal in size. Abdomen: A calcified gallstone is seen in the gallbladder. Visualized upper abdominal solid organs a nd bowel loops appear normal in the absence of contrast. IMPRESSION: No acute displaced rib fracture identified. No pleural effusion, pneumothorax, or pulmonary contusion . Reviewed by: Aniket Love MD on 04/22/2022 4:29 PM PDT Approved by: Aniket Love MD on 04/22/2022 4:29 PM PDT Station ID: [id number]
[2022-04-22 17:19] VITALS: BP 105/60
== END 2022-04-22 17:47 | disposition home or self-care (01) ==
LOC: ED 13:58
DX: S32.82XA Multiple fractures of pelvis without disruption of pelvic ring, initial encounter for closed fracture (principal); S40.011A Contusion of right shoulder, initial encounter; S20.211A Contusion of right front wall of thorax, initial encounter; S80.01XA Contusion of right knee, initial encounter; S80.11XA Contusion of right lower leg, initial encounter; K80.20 Calculus of gallbladder without cholecystitis without obstruction; V80.010A Animal-rider injured by fall from or being thrown from horse in noncollision accident, initial encounter; Y92.9 Unspecified place or not applicable; F41.9 Anxiety disorder, unspecified
CPT/HCPCS: 36415; 71250; 72131; 73030; 73564; 73590; 74176; 80048; 85025; 85610; 99282; 99284; A9270

== ENCOUNTER 2022-05-03 15:00 | Outpatient (CLI) | payer OTHER ==
--- NOTE | 2022-05-03 17:16 | XRAY Report ---
PROCEDURE: Pelvis 3 View INDICATIONS: PELVIS FX TECHNIQUE: 3 views of the pelvis acquired. COMPARISON: CT abdomen/pelvis 04/22/2022. FINDINGS: Bones: Minimally displaced and mildly comminuted fracture of the inferior right pubic ramus is seen m edially. There is also a nondisplaced fracture at the lateral aspect of the right superior pubic mario s. No suspicious bony lesions. Soft tissues: Visualized bowel gas pattern is normal. No suspicious soft tissue calcifications. In trauterine device is seen projecting over the pelvis IMPRESSION: Unchanged nondisplaced fractures of the superior and inferior pubic rami. Reviewed by: Aniket Love MD on 05/03/2022 5:14 PM PDT Approved by: Aniket Love MD on 05/03/2022 5:14 PM PDT Station ID: [id number]
== END 2022-05-03 23:59 | disposition home or self-care (01) ==
LOC: DI.WOS 15:00
PROVIDERS: ATTEND Orthopaedic Surgery
DX: S32.591D Other specified fracture of right pubis, subsequent encounter for fracture with routine healing (principal)